=== PATIENT | male | born 1965 | race Caucasian/White ===

== ENCOUNTER 2025-08-23 12:08 | Day surgery (SDC) | payer OTHER ==
[~2025-08-23] VITALS: Ht 170.2 cm; Wt 101.1 kg
[~2025-08-23 12:08] MED LIST: FentaNYL Citrate 50 MCG/ML 2 ML Injection ONE; Lidocaine 1%-Epineph 1:100000 20 ML MDV ONE; Lidocaine HCl 2% 10 ML SDA ONE; NS 500 ML IV ONE; Sodium Bicarb 8.4% 1 MEQ/ML 50 ML Vial ONE
[2025-08-23] MEDS ORDERED: ELIQUIS5 M3 PO (12:27)
[2025-08-23] MEDS ORDERED: OMEPRAZOLE20 MG PO (12:28)
[2025-08-23] MEDS ORDERED: ENTRESTO 24 MG1 EAC3 PO (12:28)
[2025-08-23] MEDS ORDERED: LOSARTAN POTASS25 M2 PO (12:28)
[2025-08-23] MEDS ORDERED: METOPROLOL SUCC25 MG PO (12:28)
[2025-08-23] MEDS ORDERED: NS 500 ML IV ONE (12:41)
[2025-08-23] MEDS ORDERED: CeFAZolin Sodium 2,000 MG VIAL ONE (13:39)
[2025-08-23] MEDS ORDERED: Dexamethasone Sod Phos 10 MG/ML 1ML VIAL ONE (14:36)
[2025-08-23] MEDS ORDERED: Ondansetron HCl 2 MG / ML 2ML Vial ONE (14:36)
--- NOTE | 2025-08-23 14:46 | NUR ---
08/23/25 1446 Lavinia Calvert PT DENIED THAT HE HAD ANY PAIN, NO NAUSEA. PT'S IS AT THE SIDE OF THE RECLINER. PT PLEASANT AND COOPERATIVE WITH CARE PROVIDED. PT ABLE TO TOLERATE HIS FLUIDS WELL. PT READY TO GO HOME AND REST. ALL QUESTIONS ANSWERED AND CONCERNS ADDRESSED. PT AMBULATED TO PRIVATE VEHICLE. PT'S GAIT STEADY.
== END 2025-08-23 14:28 | disposition home or self-care (01) ==
LOC: ORSCSDS 12:08
PROVIDERS: Orthopaedic Surgery
PROC: 0JBK0ZX Excision of Left Hand Subcutaneous Tissue and Fascia, Open Approach, Diagnostic (ICD-10-PCS; principal; 2025-08-23 13:30)
DX: D18.01 Hemangioma of skin and subcutaneous tissue (principal); R22.32 Localized swelling, mass and lump, left upper limb; M79.642 Pain in left hand; I10 Essential (primary) hypertension; I48.91 Unspecified atrial fibrillation; Z79.01 Long term (current) use of anticoagulants; I50.9 Heart failure, unspecified; K76.0 Fatty (change of) liver, not elsewhere classified; K21.9 Gastro-esophageal reflux disease without esophagitis; F17.210 Nicotine dependence, cigarettes, uncomplicated; J44.9 Chronic obstructive pulmonary disease, unspecified; Z79.899 Other long term (current) drug therapy
CPT/HCPCS: 88307; J0690; J1100; J2003; J2405; J2704; J3010; J7040